=== PATIENT | male | born 1955 | race Caucasian/White ===

== ENCOUNTER → 2018-11-16 | Outpatient (CLI) | payer BC, OTHER ==
[~2018-11-16] MED LIST: CENTRUM SILVER1 EAC1 PO; FISH OIL 1,0001 EAC5 PO; PROPECIA; TRICOR145 MG PO; VITCB500GO PO
--- NOTE | 2018-11-16 16:02 | 2DMMODE ---
[facility] [place] [address] 2 D/M-MODE ECHOCARDIOGRAM Name: STANTONHARI Lagos Room #: [facility] [id number] ������������� Admission: 11/16/18 ������������� Attend Phys: Rylan Juarez MD Discharge: ��� ������������� ��� Date of : 55 Date of Service: 11/16/18 1602 �� Report #: [id number] �������� ��������������������������������������������[id number] THIS REPORT FOR: //name// APPROVED REPORT Study performed: 11/16/2018 15:13:45 EXAM: Comprehensive 2D, Doppler, and color-flow Echocardiogram Patient Location: Echo lab Status: routine BSA: 2.13 HR: 59 bpm BP: 160/90 mmHg Rhythm: NSR Other Information Study Quality: Adequate Indications CAD Hypertension/HDD 2D Dimensions RVDd: 36.91 mm IVSd: 12.97 (7-11mm) LVOT Diam: 22.82 (18-24mm) LVDd: 46.48 mm PWd: 11.72 (7-11mm) Ascending Ao: 34.22 (22-36mm) LVDs: 35.91 (25-40mm) Aortic Root: 35.09 mm IVC: 17.00 mm Volumes Left Atrial Volume (Systole) Single Plane 4CH: 44.04 mL Single Plane 2CH: 70.85 mL LA ESV Index: 29.00 mL/m2 Aortic Valve AoV Peak Chace.: 1.17 m/s AO Peak Gr.: 5.50 mmHg LVOT Max P.08 mmHg LVOT Max V: 0.88 m/s CITLALY Vmax: 3.06 cm2 Mitral Valve E/A Ratio: 0.7 MV Decel. Time: 303.48 ms [facility] [address] [address] 2 D/M-MODE ECHOCARDIOGRAM Name: HARI EID Room #: [facility]#: [id number] ������������� Admission: 11/16/18 ������������� Attend Phys: Rylan Juarez MD Discharge: ��� ������������� ��� Date of : 55 Date of Service: 11/16/18 1602 �� Report #: [id number] �������� ��������������������������������������������[id number] MV E Max Chace.: 0.59 m/s MV A Chace.: 0.79 m/s MV PHT: 88.01 ms IVRT: 147.64 ms Pulmonary Valve PV Peak Chace.: 1.03 m/s PV Peak Gr.: 4.27 mmHg Pulmonary Vein P Vein S: 0.59 m/s P Vein A: 0.34 m/s P Vein D: 0.38 m/s P Vein A Dur.: 138.4 msec P Vein S/D Ratio: 1.55 Tricuspid Valve RAP Estimate: 5.00 mmHg Left Ventricle The left ventricle is normal size. Mild concentric left ventricular hypertrophy. The left ventricular systolic function is normal. The left ventricular ejection fraction is within the normal range. LVEF is 55%. Mild diastolic dysfunction is present (impaired relaxation pattern). Right Ventricle The right ventricle is normal size. The right ventricular systolic function is normal. Atria The left atrium size is normal. The right atrium size is normal. Aortic Valve The aortic valve is normal in structure. No aortic regurgitation is present. There is no aortic valvular stenosis. Mitral Valve The mitral valve is normal in structure. Trace mitral regurgitation. No evidence of mitral valve stenosis. Tricuspid Valve The tricuspid valve is normal in structure. Trace tricuspid regurgitation. Unable to assess PA pressure. Pulmonic Valve Pulmonic valve is not well visualized. Mild pulmonic regurgitation. [facility] [address] [place] [address] 2 D/M-MODE ECHOCARDIOGRAM Name: HARI EID Room #: [facility]#: [id number] ������������� Admission: 11/16/18 ������������� Attend Phys: Rylan Juarez MD Discharge: ��� ������������� ��� Date of : 55 Date of Service: 11/16/18 1602 �� Report #: [id number] �������� ��������������������������������������������[id number] Great Vessels The aortic root is normal in size. IVC is normal in size and collapses >50% with inspiration. Pericardium There is no pericardial effusion. <Conclusion> The left ventricle is normal size. Mild concentric left ventricular hypertrophy. The left ventricular systolic function is normal. Mild diastolic dysfunction is present (impaired relaxation pattern). The right ventricle is normal size. The left atrium size is normal. The right atrium size is normal. The aortic valve is normal in structure. Trace mitral regurgitation. Trace tricuspid regurgitation. ��������������������������������������������� <ELECTRONICALLY SIGNED> ���������������������������������������� By: Rylan Juarez MD ��������������������������������������������� 11/16/18 1602 160 160 Rylan Juarez MD /INF
== END ==
LOC: CV 07:42
DX: I37.1 Nonrheumatic pulmonary valve insufficiency (principal); I25.10 Atherosclerotic heart disease of native coronary artery without angina pectoris; I11.9 Hypertensive heart disease without heart failure; Z88.8 Allergy status to other drugs, medicaments and biological substances

== ENCOUNTER → 2020-01-06 | Outpatient (CLI) | payer BC, OTHER | LOC: SJCVCIMAG 09:41 | PROVIDERS: ATTEND Internal Medicine Cardiovascular Disease | DX: I25.10 Atherosclerotic heart disease of native coronary artery without angina pectoris (principal); E78.00 Pure hypercholesterolemia, unspecified; I10 Essential (primary) hypertension ==

== ENCOUNTER → 2020-03-29 | Outpatient (CLI) | payer OTHER | LOC: CAT 08:13 | PROVIDERS: ATTEND Internal Medicine Cardiovascular Disease | DX: Z13.6 Encounter for screening for cardiovascular disorders (principal); I25.10 Atherosclerotic heart disease of native coronary artery without angina pectoris; E78.00 Pure hypercholesterolemia, unspecified ==